=== PATIENT | female | born 1990 | race Caucasian/White ===

== ENCOUNTER 2024-09-25 20:30 | Emergency (ER) | payer MEDICAID, SELFPAY ==
--- NOTE | ~2024-09-25 | XR_ITS ---
EXAM: XR hand RT min 3V DATE: 09/25/2024 20:41 HISTORY: right ring finger injury, BRUISNG AND SWELLING . COMPARISON: None available. FINDINGS: Normal mineralization. Tiny triangle shaped ossification/calcification over the anterolate ral aspect of the right fourth PIP joint. No lytic or blastic lesion. Joint spaces are maintained. No erosion or periosteal change. Soft tissues within normal limits. IMPRESSION: Possible tiny avulsion fracture fragment at the anterolateral aspect of the right fourth PIP joint, correlate for pain/tenderness. Reviewed, dictated and finalized at location K. ORATE RELATIONS MANAGER IMPRESSION: Possible tiny avulsion fracture fragment at the anterolateral aspec t of the right fourth PIP joint, correlate for pain/tenderness.
--- NOTE | 2024-09-25 20:49 | ED_ITS ---
HPI - Trauma General Chief Complaint: Extremity Injury, Upper Stated Complaint: right ring finger injury Time Seen by Provider: 09/25/24 20:49 Source: patient Mode of arrival: ambulatory Limitations: no limitations History of Present Illness HPI narrative: This is a 34-year-old female who presents to the ED for chief complaint of right ring finger injury that occurred just prior to arrival. Patient states that she was handling a fasting well when her daughter tried to push the full into her. States that this event her finger sideways and she feels like it had subluxated. She states that she has dealt with this kind of issue for the other hand. States that she attempted to reduce the finger at home but is now having a lot of pain throughout the ring finger and difficulty with making a fist. Denies any further sites of pain or injury. Denies numbness or weakness. Review of Systems Review of Systems: All systems as dictated in HPI Exam Narrative: GENERAL: Well-appearing, well-nourished, and in no acute distress. HEAD: Normocephalic, atraumatic. EYES: PERRLA and EOMI. ENT: Nares clear, no rhinorrhea or epistaxis. Mucous membranes moist. Oropharynx without tonsillar hypertrophy exudate or other lesions. NECK: Supple. No adenopathy or masses. CHEST: No respiratory distress. Clear to auscultation. No wheezes rales or rhonchi HEART: Regular rate and rhythm. No murmur heard. Normal peripheral pulses. ABDOMEN: Soft, nontender, nondistended, normal active bowel sounds. MSK: LUE: Benign RUE: Mild tenderness throughout the right ring finger. Difficulty with making a fist. Able to fully extend the finger. Neurovascularly intact distally. SKIN: Warm, dry, no rash. NEURO: Alert and oriented x4. No focal deficits. PSYCH: Normal mood and affect. MDM - Trauma MDM Narrative Medical decision making narrative: This is a 34-year-old female who presents to the ED for chief complaint of right ring finger injury that occurred just prior to arrival. Vitals are normal. Exam is remarkable for the above. Right hand x-rays are revealing of a tiny avulsion fracture to the proximal right ring finger. This is clinically consistent with her presentation. Presentation most likely representing a ligamentous sprain causing small avulsion fracture. Patient was placed in a finger splint here. Patient will be discharged in stable condition. Supportive measures discussed and return precautions given. Patient is understanding and agreeable with plan for discharge with PCP follow-up. Discharge Plan Discharge Clinical Impression: Avulsion fracture of proximal phalanx of finger Patient Disposition: Home, Self-Care Condition: Stable Instructions: Antibiotic Form Additional Instructions: Your exam and imaging today did show tiny avulsion fracture to the ring finger. This is probably due to a ligament sprain. Please use finger splint for the next 2-3 weeks and follow-up with your PCP. Use Tylenol 500 mg and ibuprofen 600 mg every 6 hours as needed for pain control. If you have any new or worsening symptoms please return to the ER for further evaluation. Patient Language: Setswana Follow-up/Referrals: PHYSICIAN,LEGAL RESEARCHER [Non-Staff] - Time of Disposition: 20:54
--- OUTSIDE RECORDS SUMMARY | 2024-09-25 21:12 | XMS_ITS | Referral Summary ---
Author Organization [facility] Address [address] [place] [address] Care Team Providers Care [employer] Consultant Name Role Phone Lanette Jimenez Primary Care Provider + Source Comments [facility],non-owned Affiliates and Associated Physician Practices is amultiple site organization consisting of ambulatory clinics and hospital sitesin [place], [place], [place] and [place]. This disclosure is being madepursuant to the Care Everywhere program and may not contain all information available regarding this patient. Last updated 18.[facility] Encounters Date Type Department Care Team Description 09/04/[address] [phone] Lanette Jimenez APRN-CNP MEDICATION REFILL 08/16/[address] [phone] Lanette Jimenez APRN-CNP Refill Request 07/28/2024 3:00 PM [employer] WORK[employer] Office Visit [address] [phone] Lanette Jimenez APRN-CNP Bronchitis (Primary Dx) 07/22/2024 1:40 PM [employer] Office Visit [address] 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 Alwaysverify current medications with the patient. Medication Sig Dispensed Refills Start Date End Date Status lisdexamfetamine (VYVANSE) 30 MG capsuleIndications :Attention Deficit Hyperactivity Disorder Take 1 (one) capsule by mouth every morning Reasons: Attention Deficit Hyperactivity Disorder 30 capsule 09/21/2021 Active Additional Information Patient not taking.Reported on 04/16/2023 PARoxetine (Paxil) 10 MG tabletIndications: Anxiety Take 1 (one) tablet by mouth once daily 90 tablet 1 11/13/2023 Active Additional Information Patient not taking.Reported on 04/24/2024 albuterol HFA (Proventil; Ventolin; Proair) 108 (90 Base) MCG/ACT inhalerIndications :COVID-19,SOB (shortness of breath) Inhale 2 (two) puffs by mouth every 4 hours as needed for Wheezing 6.7 g 3 01/28/2024 Active PHENobarbital (Luminal) 30 MG tablet Take 1 (one) tablet by mouth daily before breakfast 01/10/2024 Active ALPRAZolam (Xanax) 0.25 MG tabletIndications: Anxiety Take 1 (one) tablet by mouth 2 times daily as needed for Anxiety 10 tablet 05/21/2024 Active topiramate (Topamax) 25 MG tabletIndications: Class 2 obesity due to excess calories without serious comorbidity with body mass index (BMI) of 37.0 to 37.9 in adult Take 1 (one) tablet by mouth once daily 90 tablet 1 05/22/2024 Active amoxicillin-clavul anate (Augmentin) 875-125 MG tabletIndications: Acute non-recurrent pansinusitis Take 1 (one) tablet by mouth 2 times daily with morning and evening meal 20 tablet 07/22/2024 Active fluconazole (Diflucan) 150 MG tabletIndications: Yeast infection Take one now and repeat in 1 week 2 tablet 07/22/2024 Active hydroCHLOROthiazid e (Microzide) 12.5 MG capsuleIndications :Fluid retention TAKE ONE Capsule BY MOUTH DAILY 90 capsule 1 08/17/2024 Active montelukast (Singulair) 10 MG tabletIndications: Seasonal allergies Take 1 (one) tablet by mouth once daily 90 tablet 1 08/17/2024 Active phentermine (Ionamine) 30 MG capsuleIndications :Class 2 obesity due to excess calories without serious comorbidity with body mass index (BMI) of 37.0 to 37.9 in adult Take 1 (one) capsule by mouth daily before breakfast 30 capsule 09/05/2024 Active phentermine (Ionamine) 30 MG capsuleIndications :Class 2 obesity due to excess calories without serious comorbidity with body mass index (BMI) of 37.0 to 37.9 in adult Take 1 (one) capsule by mouth daily before breakfast 30 capsule 07/22/2024 09/04/19 25 Discontinu ed(Reorder ) Active Problems Problem Noted Date Diagnosed Date COVID-19 09/02/2020 Immunizations Name Administration Dates Next Due DTP 09/06/2001, 1,10/08/2000,1999 HEP B VACCINE ADOL/ADULT 2 DOSE 06/17/2001,10/08,08/06/2000 HIB-PRP-OMP 3 DOSE 06/17/2001,10/08/2000, 000 INFLUENZA VACCINE, QUADR. (F LUZONE; FLULAVAL; FLUARIX; AFLURIA QUADRIVALENT; 6MO+), 0.5 ML (IIV4) 09/13/2015 MENINGOCOCAL MENINGITIS 05/08/2014 MMR 09/06/2001 PNEUMOCOCCAL PCV7 CONJ, PEDS 06/17/2001, 12/14/2000,10/08/2000,1999 POLIO IPV 12/14/2000,10/08/2000,08/06/2000 TDAP (7yrs+) 09/14/2015 VARICELLA 05/08/2014,06/17/2001 Social History Tobacco Use Types Packs/Day Years Used Date Smoking Tobacco: Former Cigarettes 2 - 2010 Smokeless Tobacco: Never Tobacco Cessation:Counseling Given: No Alcohol Use Standard Drinks/Week Comments Yes 0 (1 standard drink = 0.6 oz pur e alcohol) PHQ-2 Answer Date Recorded Patient Health Questionnaire-2 Score 0 07/28/2024 Sex and Gender Information Value Date Recorded Sex Assigned at Female 05/21/2024 12:15 PM CDT Gender Identity Not on file Sexual Orientation Straight 05/21/2024 12 :15 PM CDT Last Filed Vital Signs Vital Sign Reading Time Taken Comments Blood Pressure 127/88 07/28/2024 3:09 PM [employer] Pulse 114 07/28/2024 3:09 PM [employer] Temperature 36.7 ??C (98.1 ??F) 04/24/2024 10:59 AM C DT Respiratory Rate 18 06/12/2022 3:21 PM CDT Oxygen Saturation 97% 07/28/2024 3:09 PM [employer] Inhaled Oxygen Concentration - - Weight 83.5 kg (184 lb) 07/28/2024 3:09 PM [employer] Height 160 cm (5' 3 ) 07/28/2024 3:09 PM [employer] WORKER Body Mass Index 32.59 07/28/2024 3:09 PM [employer] Functional Status Functional Status Response Date of Assess ment Is person deaf or have serious hearing difficult y? No 09/13/2015 Is person blind or have serious difficulty seein g? No 09/13/2015 Does person have serious dif ficulty walking/climbing stairs? No 09/13/2015 Does person have difficulty dressing/bathing? No 09/13/2015 Does person have difficulty doing errands alone? No 09/13/2015 Cognitive Status Response Date of Assessm ent Does person have difficulty concentrating/remembering/making decisions? No 09/13/2015 Plan of Treatment Not on file Administered Medications Advance Directives * Full Code (Latest Code Status on File) Date Activated Date Inactivated Comments 09/13/2015 12:18 AM 09/15/2015 3:31 PM * Full Code Date Activated Date Inactivated Comments 09/09/2015 8:16 PM 09/09/2015 10:31 PM * Full Code Date Activated Date Inactivated Comments 08/27/2015 9:40 AM 08/27/2015 12:05 PM * Full Code Date Activated Date Inactivated Comments 08/15/2015 5:24 PM 08/15/2015 8:11 PM * Full Code Date Activated Date Inactivated Comments 08/07/2015 5:27 AM 08/07/2015 9:21 AM Care Teams [employer] Consultant Relationship Specialty Start Date End Date Lanette Jimenez, ALUMINUM FABRICATION SUPERVISOR-RECORD PRESS TENDER [address] [place] [address] PCP - General Nurse Practitioner 12/26/21
--- OUTSIDE RECORDS SUMMARY | 2024-09-25 21:12 | XMS_ITS | Patient Health Summary ---
Author Organization [facility] Address [address] [place] [address] Care Team Providers Care Litigation Partner Name Role Phone Lanette Jimenez Darren CASTILLO-INSTITUTE SCIENTIST Primary Care Provider + Note from [facility],non-owned Affiliates and Associated Physician Practices is amultiple site organization consisting of ambulatory clinics and hospital sitesin [place], [place], [place] and [place]. This disclosure is being madepursuant to the Care Everywhere program and may not contain all information available regarding this patient. Last updated 18.[facility] Allergies * Morphine(Shortness of Breath,Rash) -High Criticality Medications * Be aware that medications may not be up to date on this document. Alwaysverify current medications with the patient. * lisdexamfetamine (VYVANSE) 30 MG capsule(Started 09/21/2021) Take 1 (one) capsule by mouth every morning Reasons: Attention Deficit Hyperactivity Disorder * PARoxetine (Paxil) 10 MG tablet(Started 11/13/2023) Take 1 (one) tablet by mouth once daily 1 refill by 11/12/2024 * albuterol HFA (Proventil; Ventolin; Proair) 108 (90 Base) MCG/ACT inhaler (Started 01/28/2024) Inhale 2 (two) puffs by mouth every 4 hours as needed for Wheezing 3 refills by 01/27/2025 * PHENobarbital (Luminal) 30 MG tablet(Started 01/10/2024) Take 1 (one) tablet by mouth daily before breakfast * ALPRAZolam (Xanax) 0.25 MG tablet(Started 05/21/2024) Take 1 (one) tablet by mouth 2 times daily as needed for Anxiety * topiramate (Topamax) 25 MG tablet(Started 05/22/2024) Take 1 (one) tablet by mouth once daily 1 refill by 05/22/2025 * amoxicillin-clavulanate (Augmentin) 875-125 MG tablet(Started 07/22/2024) Take 1 (one) tablet by mouth 2 times daily with morning and evening meal * fluconazole (Diflucan) 150 MG tablet(Started 07/22/2024) Take one now and repeat in 1 week * hydroCHLOROthiazide (Microzide) 12.5 MG capsule(Started 08/17/2024) TAKE ONE Capsule BY MOUTH DAILY 1 refill by 08/17/2025 * montelukast (Singulair) 10 MG tablet(Started 08/17/2024) Take 1 (one) tablet by mouth once daily 1 refill by 08/17/2025 * phentermine (Ionamine) 30 MG capsule(Started 09/05/2024) Take 1 (one) capsule by mouth daily before breakfast Ended Medications* phentermine (Ionamine) 30 MG capsule(Started 07/22/2024) (Discontinued) Take 1 (one) capsule by mouth daily before breakfast Active Problems Problem Noted Date Diagnosed Date COVID-19 09/02/2020 Immunizations * DTP(Given 09/06/2001, 12/14/2000, 10/08/2000, 08/06/2000) * HEP B VACCINE ADOL/ADULT 2 DOSE(Given 06/17/2001, 10/08/2000, 08/06/2000) * HIB-PRP-OMP 3 DOSE(Given 06/17/2001, 10/08/2000, 08/06/2000) * INFLUENZA VACCINE, QUADR. (FLUZONE; FLULAVAL; FLUARIX; AFLURIA QUADRIVALENT; 6MO+), 0.5 ML (IIV4)(Given 09/13/2015) * MENINGOCOCAL MENINGITIS(Given 05/08/2014) * MMR(Given 09/06/2001) * PNEUMOCOCCAL PCV7 CONJ, PEDS(Given 06/17/2001, 12/14/2000, 10/08/2000, 08/06/2000) * POLIO IPV(Given 12/14/2000, 10/08/2000, 08/06/2000) * TDAP (7yrs+)(Given 09/14/2015) * VARICELLA(Given 05/08/2014, 06/17/2001) Social History Tobacco Use Types Packs/Day Years [...] Comments Blood Pressure 127/88 07/28/2024 3:09 PM TIRE BUSTER Pulse 114 07/28/2024 3:09 PM TIRE BUSTER Temperature 36.7 ??C (98.1 ??F) 04/24/2024 10:59 AM C DT Respiratory Rate 18 06/12/2022 3:21 PM CDT Oxygen Saturation 97% 07/28/2024 3:09 PM TIRE BUSTER Inhaled Oxygen Concentration - - Weight 83.5 kg (184 lb) 07/28/2024 3:09 PM TIRE BUSTER Height 160 cm (5' 3 ) 07/28/2024 3:09 PM TIRE BUSTER Body Mass Index 32.59 07/28/2024 3:09 PM TIRE BUSTER Procedures * STREP A SCREEN - POINT OF CARE (AMB) SMGS(Performed 04/24/2024) Performed for Sore throat * SCAN ONLY HIS OPIOID MED AGREEMENT(Performed 09/13/2023) * STREP A SCREEN - POINT OF CARE (AMB) SMGS(Performed 07/17/2023) Performed for Sore throat * SARS-COV-2 (COVID-19) AG (AMB) POCT(Performed 07/17/2023) Performed for Sore throat, Fever, unspecified fever cause * TSH(Performed 05/24/2023) Performed for Hyperthyroidism * STREP A SCREEN - POINT OF CARE (AMB) SMGS(Performed 04/16/2023) Performed for Sore throat * TSH(Performed 03/12/2023) Performed for Anxiety * COMPREHENSIVE METABOLIC PANEL(Performed 11/14/2022) Performed for Anxiety * CBC W AUTO DIFFERENTIAL(Performed 11/14/2022) Performed for Anxiety * TSH(Performed 11/14/2022) Performed for Anxiety * SCAN ONLY HIS OPIOID MED AGREEMENT(Performed 11/14/2022) * STREP A SCREEN - POINT OF CARE (AMB) SMGS(Performed 09/12/2022) Performed for Sore throat * STREP A SCREEN - POINT OF CARE (AMB) SMGS(Performed 07/11/2022) Performed for Sore throat * CBC W AUTO DIFFERENTIAL(Performed 03/16/2022) Performed for Wellness examination, Fluid retention * TSH(Performed 03/16/2022) Performed for Fluid retention * THYROID PANEL (T3U T4 FTI)(Performed 03/16/2022) Performed for Fluid retention * TSH(Performed 12/08/2021) Performed for Wellness examination * COMPREHENSIVE METABOLIC PANEL(Performed 12/08/2021) Performed for Wellness examination * LIPID PROFILE(Performed 12/08/2021) Performed for Wellness examination * THYROID PANEL (T3U T4 FTI)(Performed 12/08/2021) Performed for Wellness examination, Fluid retention * SARS-COV-2 (COVID-19) IN HOUSE(Performed 09/21/2021) Performed for Otalgia of both ears, Exposure to confirmed case of COVID-19 * SARS-COV-2 (COVID-19) PANEL (SOIL)(Performed 09/21/2021) Performed for Otalgia of both ears, Exposure to confirmed case of COVID-19 * US ABDOMEN COMPLETE(Performed 06/29/2021) Performed for Right upper quadrant pain * CULTURE URINE(Performed 06/23/2021) Performed for Right upper quadrant pain * URINALYSIS AUTO - POINT OF CARE (AMB) SMGS(Performed 06/23/2021) Performed for Right upper quadrant pain * SARS-COV-2 (COVID-19) ANTIBODY IGG(Performed 06/03/2021) Performed for COVID * TSH(Performed 09/27/2020) Performed for Non morbid obesity, BMI 35.0-35.9,adult, PCOS (polycystic ovarian syndrome), Weight gain * COMPREHENSIVE METABOLIC PANEL(Performed 09/27/2020) Performed for PCOS (polycystic ovarian syndrome), Weight gain, Fatigue, unspecified type * CBC W AUTO DIFFERENTIAL(Performed 09/27/2020) Performed for Non morbid obesity, PCOS (polycystic ovarian syndrome), Weight gain, Fatigue, unspecified type * COVID-19 VIRUS (CORONAVIRUS)(Performed 08/22/2020) * URINALYSIS AUTO - POINT OF CARE (AMB) SMGS(Performed 02/16/2020) Performed for Dysuria * FSH(Performed 03/21/2019) Performed for Fatigue, unspecified type, Weight gain, Hot flashes * CBC W AUTO DIFFERENTIAL(Performed 03/21/2019) Performed for Fatigue, unspecified type, Weight gain, Hot flashes * COMPREHENSIVE METABOLIC PANEL(Performed 03/21/2019) Performed for Fatigue, unspecified type, Weight gain, Hot flashes * TSH(Performed 03/21/2019) Performed for Fatigue, unspecified type, Weight gain, Hot flashes * LH(Performed 03/21/2019) Performed for Fatigue, unspecified type, Weight gain, Hot flashes * US GALLBLADDER(Performed 12/17/2017) * CT ABDOMEN W CONTRAST(Performed 12/17/2017) * CT ABDOMEN WWO PELVIS W CONT(Performed 06/04/2017) Performed for Hematuria * URINE MICROSCOPIC ONLY(Performed 05/23/2017) Performed for Blood in urine * URINALYSIS AUTO - POINT OF CARE (AMB) SMGS(Performed 05/23/2017) Performed for Blood in urine * SKIN TEST PPD - POINT OF CARE(Performed 02/12/2017) Performed for Health examination of defined subpopulation * SKIN TEST PPD - POINT OF CARE(Performed 02/04/2017) Performed for Health examination of defined subpopulation * CBC W AUTO DIFFERENTIAL(Performed 09/14/2015) * RH IMMUNE GLOBULIN WORKUP PANEL(Performed 09/13/2015) * NEURAXIAL BLOCK(Performed 09/13/2015) * TYPE + SCREEN PANEL(Performed 09/13/2015) Performed for Supervision of normal in third trimester ([facility]) * RPR(Performed 09/13/2015) Performed for Supervision of normal in third trimester ([facility]) * CBC W AUTO DIFFERENTIAL(Performed 09/13/2015) Performed for Supervision of normal in third trimester ([facility]) * URINE MICROSCOPIC ONLY(Performed 09/13/2015) Performed for Supervision of normal in third trimester ([facility]) * URINALYSIS REFLEX TO MICROSCOPIC NO CULTURE(Performed 09/13/2015) Performed for Supervision of normal in third trimester ([facility]) * URINE MICROSCOPIC ONLY REFLEX TO CULTURE(Performed 09/09/2015) Performed for Nausea and vomiting during ([facility]) * URINALYSIS REFLEX MICROSCOPIC REFLEX CULTURE(Performed 09/09/2015) Performed for Nausea and vomiting during ([facility]) * CULTURE URINE(Performed 09/09/2015) Performed for Nausea and vomiting during ([facility]) * AMNISURE - POCT (IP) BEAKER(Performed 08/27/2015) * US OB BIOPHYSICAL PROFILE(Performed 08/15/2015) Performed for Antepartum premature rupture of membrane ([facility]) * AMNISURE - POCT (IP) BEAKER(Performed 08/15/2015) * NITRAZINE PH - POINT OF CARE (IP) - ILL(Performed 08/15/2015) Performed for Antepartum premature rupture of membrane ([facility]) * URINE MICROSCOPIC ONLY REFLEX TO CULTURE(Performed 08/15/2015) Performed for Antepartum premature rupture of membrane ([facility]) * URINALYSIS REFLEX MICROSCOPIC REFLEX CULTURE(Performed 08/15/2015) Performed for Antepartum premature rupture of membrane ([facility]) * CULTURE URINE(Performed 08/15/2015) Performed for Antepartum premature rupture of membrane ([facility]) * URINALYSIS REFLEX MICROSCOPIC REFLEX CULTURE(Performed 08/07/2015) Performed for Supervision of normal in third trimester ([facility]) * URINE MICROSCOPIC ONLY REFLEX TO CULTURE(Performed 07/22/2015) Performed for contractions, third trimester * URINALYSIS REFLEX MICROSCOPIC REFLEX CULTURE(Performed 07/22/2015) Performed for contractions, third trimester * CULTURE URINE(Performed 07/22/2015) Performed for contractions, third trimester * AMNISURE - POCT (IP) BEAKER(Performed 06/29/2015) Performed for Threatened premature labor in third trimester ([facility]) * URINE MICROSCOPIC ONLY REFLEX TO CULTURE(Performed 06/29/2015) Performed for Threatened premature labor in third trimester ([facility]) * URINALYSIS REFLEX MICROSCOPIC REFLEX CULTURE(Performed 06/29/2015) Performed for Threatened premature labor in third trimester ([facility]) * CULTURE URINE(Performed 06/29/2015) Performed for Threatened premature labor in third trimester ([facility]) * URINE MICROSCOPIC ONLY REFLEX TO CULTURE(Performed 03/31/2015) * URINALYSIS REFLEX MICROSCOPIC REFLEX CULTURE(Performed 03/31/2015) * CULTURE URINE(Performed 03/31/2015) * AMYLASE BLOOD(Performed 02/11/2015) * COMPREHENSIVE METABOLIC PANEL(Performed 02/11/2015) * CBC W AUTO DIFFERENTIAL(Performed 02/11/2015) * URINE MICROSCOPIC ONLY(Performed 02/10/2015) * URINALYSIS REFLEX TO MICROSCOPIC NO CULTURE(Performed 02/10/2015) * HCG BLOOD QUALITATIVE(Performed 11/30/2014) Performed for Absence of menstruation * GROSS + MICRO EXAM (ILL)(Performed 12/18/2013) Performed for Lump Or Mass In Breast * US BREAST LEFT COMPLETE(Performed 11/13/2013) Performed for Lump Or Mass In Breast Results * STREP A SCREEN - POINT OF CARE (AMB) [facility] (04/24/2024 11:36 AM CDT) Only the most recent of5 resultswithin the time period is included. Strep A Rapid POCT Negative Negative [facility] Strep A Rapid Screen Internal Control POCT Present [facility] Throat ENTIRE THROAT (SURFACE REGION OF NECK) / Unknown 04/24/2024 11:36 AM CDT Lanette Jimenez GREENHOUSE SPECIALIST-INSTITUTE SCIENTIST LAB - POINT OF C ARE ORDERABLES [facility] [address] [place] [address], [facility] [phone] * SCAN ONLY HIS OPIOID MED AGREEMENT (09/13/2023) Only the most recent of2 resultswithin the time period is included. 09/13/2023 Narrative 09/13/2023 Ordered by an unspecified provider. Scanned Document SCANNING ONLY * (ABNORMAL) SARS-COV-2 (COVID-19) AG (AMB) POCT (07/17/2023 10:20 AM TIRE BUSTER) Pathologist [facility] SARS-CoV-2 Ag Positive(A) Negative [facility] Lot # [id number] [facility] Expiration Date 04/30/24 [facility] Instrument Serial Number NA [facility] COVID Internal Control Acceptable Acceptable [facility] Microbiology SPECIMEN FROM NASAL FOSSAE / Unknown 07/17/2023 10:20 AM TIRE BUSTER Lanette Jimenez GREENHOUSE SPECIALIST-INSTITUTE SCIENTIST LAB - POINT OF C ARE ORDERABLES Performing Organization Address [facility]/ZIP Co de Phone Number [facility] [address] [place] [id number] [phone] * TSH (05/24/2023 4:03 PM CDT) Only the most recent of7 resultswithin the time period is included. Pathologist [facility] TSH 1.3443 0.35 - 4.94 uIU/mL 05/24/2023 6:16 PM CDT [facility] Blood BLOOD SPECIMEN / Unknown Venipuncture / Unknown 05/24/2023 4:03 PM CDT 05/24/2023 4:03 PM CDT Lanette Jimenez GREENHOUSE SPECIALIST-INSTITUTE SCIENTIST LAB - CHEMISTRY ORDERABLES Performing Organization Address City/[facility]/ZIP Co de Phone Number [facility] [address] * (ABNORMAL) CBC WITH DIFFERENTIAL (11/14/2022 2:57 PM CDT) Only the most recent of7 resultswithin the time period is included. WBC 7.3 4.0 - 10.0 x10E9/L 11/14/2022 5:04 PM CDT [facility] RBC 5.37(H) 3.93 - 5.22 x10E12/L 11/14/2022 5:04 PM CDT [facility] Hemoglobin 14.0 11.2 - 15.7 gm/dL 11/14/2022 5:04 PM CDT [facility] Hematocrit 44.1 34.1 - 44.9 % 11/14/2022 5:04 PM CDT [facility] MCV 82.1 78.0 - 100.0 fl 11/14/2022 5:04 PM CDT [facility] MCH 26.1 25.6 - 34.0 pg 11/14/2022 5:04 PM CDT [facility] MCHC 31.7(L) 32.3 - 36.5 gm/dL 11/14/2022 5:04 PM CDT [facility] RDW 13.5 11.6 - 14.4 % 11/14/2022 5:04 PM CDT [facility] MPV 10.8 9.4 - 12.4 fl 11/14/2022 5:04 PM CDT [facility] Platelet Count 266 163 - 369 x10E9/L 11/14/2022 5:04 PM CDT [facility] Neutrophils % 60.4 40.0 - 75.0 % 11/14/2022 5:04 PM CDT [facility] Lymphocytes % 30.3 19.3 - 53.1 % 11/14/2022 5:04 PM CDT [facility] Monocytes % 6.3 4.7 - 12.5 % 11/14/2022 5:04 PM CDT [facility] Eosinophils % 1.8 0.7 - 7.0 % 11/14/2022 5:04 PM CDT [facility] Basophils % 0.7 0.1 - 1.2 % 11/14/2022 5:04 PM CDT [facility] Immature Granulocytes 0.5 0 - 0.5 % 11/14/2022 5:04 PM CDT [facility] Neutrophil Absolute 4.40 1.56 - 6.13 x10E9/L 11/14/2022 5:04 PM CDT [facility] Lymphocytes Absolute 2.21 1.18 - 3.74 x10E9/L 11/14/2022 5:04 PM CDT [facility] Monocytes Absolute 0.46 0.24 - 0.86 x10E9/L 11/14/2022 5:04 PM CDT [facility] Eosinophils Absolute 0.13 0.04 - 0.54 x10E9/L 11/14/2022 5:04 PM CDT [facility] Basophils Absolute 0.05 0.01 - 0.08 x10E9/L 11/14/2022 5:04 PM CDT [facility] Immature Granulocytes Absolute 0.04(H) 0 - 0.03 x10E9/L 11/14/2022 5:04 PM CDT [facility] nRBC Auto 0 <=0 /100 WBC 11/14/2022 5:04 PM CDT [facility] nRBC Absolute 0.00 <=0 x10E9/L 11/14/2022 5:04 PM CDT [facility] Blood BLOOD SPECIMEN / Unknown Venipuncture / Unknown 11/14/2022 2:57 PM CDT 11/14/2022 2:57 PM CDT Lanette Jimenez GREENHOUSE SPECIALIST-INSTITUTE SCIENTIST LAB - HEMATOLOGY ORDERABLES [facility] [address] [place] [address], [facility] * (ABNORMAL) COMPREHENSIVE METABOLIC PANEL (11/14/2022 2:57 PM CDT) Only the most recent of5 resultswithin the time period is included. Glucose 101 70 - 125 mg/dL 11/14/2022 5:12 PM CDT [facility] Sodium 140 136 - 145 mmol/L 11/14/2022 5:12 PM CDT [facility] Potassium 3.8 3.4 - 5.1 mmol/L 11/14/2022 5:12 PM CDT [facility] Chloride 108(H) 98 - 107 mmol/L 11/14/2022 5:12 PM CDT [facility] CO2 22 22 - 29 mmol/L 11/14/2022 5:12 PM CDT [facility] Calcium 9.18 8.4 - 10.2 mg/dL 11/14/2022 5:12 PM CDT [facility] Anion Gap 14 10 - 20 mmol/L 11/14/2022 5:12 PM CDT [facility] BUN 8.3(L) 9.8 - 20.1 mg/dL 11/14/2022 5:12 PM CDT [facility] Creatinine 0.73 0.57 - 1.11 mg/dL 11/14/2022 5:12 PM CDT [facility] Alkaline Phosphatase 84 40 - 150 U/L 11/14/2022 5:12 PM CDT [facility] ALT 31 5 - 55 U/L 11/14/2022 5:12 PM CDT [facility] AST 22 5 - 34 U/L 11/14/2022 5:12 PM CDT [facility] Protein Total 7.4 6.4 - 8.3 gm/dL 11/14/2022 5:12 PM CDT [facility] Albumin 4.2 3.5 - 5.0 gm/dL 11/14/2022 5:12 PM CDT [facility] Globulin Total 3.2 2.6 - 4.0 gm/dL 11/14/2022 5:12 PM CDT [facility] Albumin/Globulin Ratio 1.3 0.9 - 1.6 11/14/2022 5:12 PM CDT [facility] Bilirubin Total 0.4 0.2 - 1.2 mg/dL 11/14/2022 5:12 PM CDT [facility] eGFR >90 >90 mL/min/1.7 3m2 11/14/2022 5:12 PM CDT [facility] Comment:The GFR result was c alculated using the updated CKD-EPI Creatinine Equation (2020). Blood BLOOD SPECIMEN / Unknown Venipuncture / Unknown 11/14/2022 2:57 PM CDT 11/14/2022 2:57 PM CDT Lanette Jimenez GREENHOUSE SPECIALIST-INSTITUTE SCIENTIST LAB - CHEMISTRY ORDERABLES Performing Organization Address City/State/[facility] Co de Phone Number [facility] [address] * THYROID PANEL (T3U T4 FTI) (03/16/2022 9:39 AM CDT) Only the most recent of2 resultswithin the time period is included. T4 Total 6.20 4.50 - 11.70 ug/dL 03/17/2022 6:27 PM CDT [employer] ([facility]) Comment: REFERENCE INTERVAL: Thyroxine Access complete set of age- and/or gender-specific reference intervals for this test in the [employer] [facility] Test Directory ([employer]). T3 Uptake 31 28 - 41 % 03/17/2022 6:27 PM CDT [employer] ([facility]) Comment: INTERPRETIVE INFORMATION: T3 Uptake Thyroxine, Free (Free T4) ([id number]) is the preferred test alternative for the T3 uptake and Free Thyroxine Index tests. Free Thyroxine Index 1.9 1.7 - 4.2 units 03/17/2022 6:27 PM CDT [employer] ([facility]) Comment: Performed By: [employer] [address] [place] [address] Reordering Clerk: Charlie Mcarthur MD, PhD Blood BLOOD SPECIMEN / Unknown Venipuncture / Unknown 03/16/2022 9:39 AM CDT 03/16/2022 9:39 AM CDT Lanette Jimenez GREENHOUSE SPECIALIST-INSTITUTE SCIENTIST LAB - CHEMISTRY ORDERABLES [employer] ([facility]) [address] * (ABNORMAL) LIPID PROFILE (12/08/2021 3:32 PM CDT) Cholesterol 204(H) <200 mg/dL 12/08/2021 5:29 PM CDT [facility] Triglycerides 114 <150 mg/dL 12/08/2021 5:29 PM CDT [facility] HDL Cholesterol 43 >40 mg/dL 2 5:29 PM CDT [facility] Chol HDL Ratio 4.7 1.0 - 6.0 12/08/2021 5:29 PM CDT [facility] LDL Calculated 138(H) 65 - 130 mg/dL 12/08/2021 5:29 PM CDT [facility] VLDL Calculated 23 <=30 mg/dL 2 5:29 PM CDT [facility] Blood BLOOD SPECIMEN / Unknown Venipuncture / Unknown 12/08/2021 3:32 PM CDT 12/08/2021 3:32 PM CDT Narrative [facility] - 12/08/2021 5:29 PM CDT Lipid Profile Comment: CHOLESTEROL LEVEL..................CLINICAL INTERPRETATION LESS THAN 200 MG/DL..............................DESIRABLE 200-239 MG/DL..............................BORDERLINE HIGH GREATER THAN 240 MG/DL................................HIGH LDL-CHOLESTEROL LEVEL..............CLINICAL INTERPRETATION LESS THAN 100 MG/DL................................OPTIMAL 100-129 MG/DL.................................NEAR OPTIMAL GREATER THAN 160 MG/DL...........................HIGH RISK HDL RISK LEVEL GREATER THEN 60 MG/DL............................DECREASED 40-60 MG/DL........................................AVERAGE LESS THAN 40 MG/DL...............................INCREASED TRIGLYCERIDE LEVEL..................CLINICAL INTERPRETATION LESS THAN 150 MG/DL...............................DESIRABLE 150-199 MG/DL...............................BORDERLINE HIGH 200-499 MG/DL..........................................HIGH GREATER THAN 500..................................VERY HIGH THE NATIONAL CHOLESTEROL EDUCATION PROGRAM HAS SET THE ABOVE GUIDELINES (REFERANCE VALUES) FOR CHOLESTEROL AND HDL. RISK ASSOCIATED WITH CHOLESTEROL/HDL RATIOS RISK....................MALE RATIO.............FEMALE RATIO 1/2 AVERAGE.................<3.4.......................<3.3 LOW RISK.................... 4.0 ...................... 3.8 AVERAGE..................... 5.0 ...................... 4.5 2X AVERAGE.................. 9.5 ...................... 7.0 3X AVERAGE...................>23........................>11 Lanette Darren Jimenez GREENHOUSE SPECIALIST-INSTITUTE SCIENTIST LAB - CHEMISTRY ORDERABLES Performing Organization Address City/State/[facility] Co de Phone Number [place] [phone] * SARS-COV-2 (COVID-19) INTERNAL (09/21/2021 1:12 PM TIRE BUSTER) COVID-19 PCR Not detected Not detected 09/22/2021 6:49 AM TIRE BUSTER [facility] Microbiology SPECIMEN FROM NASOPHARYNGEAL STRUCTURE / Unknown Collection / Unknown 09/21/2021 1:12 PM TIRE BUSTER 09/21/2021 1:12 PM TIRE BUSTER Narrative [facility] - 09/22/2021 6:49 AM TIRE BUSTER This nucleic acid amplification assay performance was validated by [facility]. This test has been authorized by the Food and Drug administration (FDA)under an Emergency??Use Authorization (EUA). This test has been validated in accordance with the FDA's guidance document Policy for Diagnostic Testing in Laboratories Certified to perform High Complexity Testing under CLIA prior to Emergency Use Authorization for Coronavirus Disease-2019 during the Public Health Emergency issued on October 25, 2019. FDA independent review of this validation is pending. This test is only authorized for the duration of time the declaration that circumstances exist justifying the authorization of emergency use of in vitro diagnostic tests for detection of SARS-CoV-2 virus and/or diagnosis of COVID-19 infection under section 564(b)(1) of the Act, 21 U.S.C 360bbb-3 (b)(1), unless the authorization is terminated or revoked sooner. Fact Sheets for this EUA assay are available upon request. Tammy Scott GREENHOUSE SPECIALIST-INSTITUTE SCIENTIST LAB - MICROBIO LOGY ORDERABLES [facility] [address] [place] [address], [facility] [phone] * US ABDOMEN COMPLETE (06/29/2021 9:24 AM CDT) Anatomical Region Laterality Modality Abdomen Ultrasound 06/29/2021 10:2 3 AM CDT Impressions 06/29/2021 11:02 AM CDT 1.Gallbladder maintains normal configuration without cholelithiasis or evidence of acute cholecystitis. No bile duct dilatation. 2.Visualized liver parenchyma has normal echotexture. Spleen is normal in size and echotexture. Doppler evaluation of the central portal vein demonstrates patency with normal directional flow. 3.Pancreas is partially obscured by overlying bowel gas though negative where seen. No ascites or peripancreatic fluid collection. Normal caliber abdominal aorta. 4.The kidneys demonstrate normal cortical echotexture bilaterally. No hydronephrosis. Right kidney measures 10.7 x 5.5 x 4.0 cm. Left kidney measures 12.5 x 5.2 x 4.5 cm. 5.If further evaluation is warranted for patient's abdominal pain, then HIDA scan and CT abdomen and pelvis could be obtained. Edited by Antonina Zuluaga on 06/29/2021 10:38 AM *Reading Radiologist: Nicolasa Crocker on 06/29/2021 at 11:02 AM Narrative 06/29/2021 11:02 AM CDT EXAMINATION: US ABDOMEN COMPLETE EXAM DATE/TIME: 06/29/2021 9:25 AM CLINICAL HISTORY: Abdominal pain. COMPARISON: 06/04/2017 CT abdomen and pelvis. Procedure Note Austen Crocker MD - 06/29/2021 EXAMINATION: US ABDOMEN COMPLETE EXAM DATE/TIME: 06/29/2021 9:25 AM CLINICAL HISTORY: Abdominal pain. COMPARISON: 06/04/2017 CT abdomen and pelvis. IMPRESSION 1.Gallbladder maintains normal configuration without cholelithiasis or evidence of acute cholecystitis. No bile duct dilatation. 2.Visualized liver parenchyma has normal echotexture. Spleen is normal in size and echotexture. Doppler evaluation of the central portal vein demonstrates patency with normal directional flow. 3.Pancreas is partially obscured by overlying bowel gas though negative where seen. No ascites or peripancreatic fluid collection. Normal caliber abdominal aorta. 4.The kidneys demonstrate normal cortical echotexture bilaterally. No hydronephrosis. Right kidney measures 10.7 x 5.5 x 4.0 cm. Left kidney measures 12.5 x 5.2 x 4.5 cm. 5.If further evaluation is warranted for patient's abdominal pain, then HIDA scan and CT abdomen and pelvis could be obtained. Edited by Antonina Zuluaga on 06/29/2021 10:38 AM *Reading Radiologist: Nicolasa Crocker on 06/29/2021 at 11:02 AM Lanette Jimenez GREENHOUSE SPECIALIST-INSTITUTE SCIENTIST US ORDERABLES * CULTURE URINE (06/23/2021 3:39 PM CDT) Only the most recent of6 resultswithin the time period is included. Culture Urine Moderate growth normal skin/urogeni cori jimbo JAZMYNE 06/25/2021 5:00 AM CDT [facility] Urine URINE SPECIMEN OBTAINED BY CLEAN CATCH PROCEDURE / Unknown Collection / Unknown 06/23/2021 3:39 PM CDT 06/23/2021 3:39 PM CDT Lanette Jimenez GREENHOUSE SPECIALIST-INSTITUTE SCIENTIST LAB - MICROBIOLO GY ORDERABLES [facility] [address] * (ABNORMAL) URINALYSIS AUTO - POINT OF CARE (AMB) SMG (06/23/2021 3:10 PM CDT) Only the most recent of3 resultswithin the time period is included. Clarity UA POCT Cloudy [facility] Color UA POCT Shelly [facility] Glucose UA Negative Negative [facility] Bilirubin UA POCT Moderate(A) Negative [facility] Ketone UA Trace(A) Negative [facility] Specific [place] UA POCT >=1.030 1.002 - 1.030 [facility] Blood UA POCT Trace-Intact (A) Negative [facility] pH UA 6.0 5.0 - 8.0 pH units [facility] Protein UA POCT 100.(A) Negative [facility] Urobilinogen UA 1.0 0.1 - 1.0 [facility] Nitrite UA POCT Negative Negative [facility] Leukocyte UA Negative Negative [facility] QC Verified Yes Yes [facility] Urine URINE / Unknown 06/23/2021 3 :10 PM CDT Lanette Jimenez GREENHOUSE SPECIALIST-INSTITUTE SCIENTIST LAB - POINT OF C ARE ORDERABLES [facility] [address] [place] [address], [facility] [phone] * (ABNORMAL) SARS-COV-2 (COVID-19) ANTIBODY IGG (06/03/2021 9:32 AM CDT) CoV2 IGG Positive(A ) Negative 06/03/2021 5:11 PM CDT AM LABORATORY Blood BLOOD SPECIMEN / Unknown Venipuncture / Unknown 06/03/2021 9:32 AM CDT 06/03/2021 9:32 AM CDT Narrative [facility] - 06/03/2021 5:11 PM CDT This serologic based test was developed by [employer] and its performance characteristics determined by [facility] multisite validation and [facility]. ??This test has not been fully reviewed by the FDA but is being allowed for use per the FDA's Emergency Use Authorization. Please note the following disclaimers: Negative results do not rule out SARS-CoV-2 infection, particulary in those who have been in contact with the virus. ??Follow up testing with a molecular diagnostic should be considered to rule out infection in these individuals. ?? Results from antibody testing should not be used as the sole basis to diagnose or exclude SARS-CoV-2 infection or to inform infection status. False positive results may be due to past or present infection with [id number] coronavirus strains. Rigorous scientific studies have not been completed to determine if detectable IgG to SARS-CoV-2 confers protective immunity. Lanette Jimenez GREENHOUSE SPECIALIST-INSTITUTE SCIENTIST LAB - CHEMISTRY ORDERABLES [facility] [address] [place] [address], [facility] * COVID-19 VIRUS (CORONAVIRUS) (08/22/2020) Microbiology Historical Provider LAB - MICROBIOLOG Y ORDERABLES * LH (03/21/2019 9:58 AM CDT) LH 10.3 IU/L 03/22/2019 7:55 PM CDT [facility] ([facility]) Comment: INTERPRETIVE INFORMATION: Luteinizing Hormone Females: ?? Follicular: ?2.4-12.6 IU/L ?? Mid-Cycle: ? 14.0-95.6 IU/L ?? Luteal: ?1.0-11.4 IU/L ?? Postmenopausal: ??7.7-58.5 IU/L REFERENCE INTERVAL: Luteinizing Hormone Access complete set of age- and/or gender-specific reference intervals for this test in the [employer] [facility] Test Directory ([employer]). Performed by [employer], [address] [place] [address] [email or web address], Roverto Haji MD, Lab. Director Blood BLOOD SPECIMEN / Unknown Venipuncture / Unknown 03/21/2019 9:58 AM CDT 03/21/2019 9:58 AM CDT Tammy Scott GREENHOUSE SPECIALIST-INSTITUTE SCIENTIST LAB - CHEMISTR Y ORDERABLES Performing Organization Address [facility] [place] [facility] Co de Phone Number [employer] ([facility]) [address] [place] [address] * FSH (03/21/2019 9:58 AM CDT) [facility] Signature FSH 5.0 IU/L 03/22/2019 8:29 PM CDT [employer] ([facility]) Comment: INTERPRETIVE INFORMATION: Follicle Stimulating Hormone Females: ?? Follicular: ?3.5-12.5 IU/L ?? Mid-Cycle: ? 4.7-21.5 IU/L ?? Luteal: ?1.7-7.7 IU/L ?? Postmenopausal: ??25.8-134.8 IU/L REFERENCE INTERVAL: Follicle Stimulating Hormone Access complete set of age- and/or gender-specific reference intervals for this test in the [employer] [facility] Test Directory ([employer]). Performed by [employer], [address] [place] [address] [email or web address], Roverto Haji MD, Lab. Director Blood BLOOD SPECIMEN / Unknown Venipuncture / Unknown 03/21/2019 9:58 AM CDT 03/21/2019 9:58 AM CDT Tammy Scott GREENHOUSE SPECIALIST-INSTITUTE SCIENTIST LAB - CHEMISTR Y ORDERABLES Performing Organization Address City/[facility]/ZIP Co de Phone Number [employer] ([facility]) [address] * US GALLBLADDER (12/17/2017) Anatomical Region Laterality Modality Ultrasound Historical Provider US ORDERABLES * CT ABDOMEN W CONTRAST (12/17/2017) Anatomical Region Laterality Modality Abdomen Other Historical Provider CT ORDERABLES * CT ABDOMEN WWO PELVIS W CONT (06/04/2017 9:35 AM CDT) Anatomical Region Laterality Modality Abdomen, Pelvis Computed Tomogra phy 06/04/2017 10:0 7 AM CDT Impressions 06/04/2017 10:38 AM CDT Radiation dose reduction technique was utilized. COMPARISON: None. CONTRAST DOSE 100 mL Omnipaque-300 IV. Clear lung bases. Normal-appearing liver, spleen, pancreas, adrenal glands, gallbladder and both kidneys. Very tiny bilateral nephroliths without obstruction or hydronephrosis. Both kidneys are normally functioning. Nondilated ureters. No evidence of solid or cystic renal mass. Bladder is unremarkable. No focal intra-abdominal or pelvic mass. No evidence of small bowel obstruction. Constipation. Uterus is unremarkable. Right ovary measures 4 x 3.5 cm in size. Left ovary measures 2.5 x 2.5 cm in size. No free fluid. No evidence of lymphadenopathy. Appendix normal. Edited by Antonina Zuluaga on 06/04/2017 10:29 AM Narrative 06/04/2017 10:38 AM CDT PROCEDURE: CT ABDOMEN WWO PELVIS W CONT ?? 06/04/2017 10:07 AM HISTORY: ??Hematuria, unspecified. FINDINGS AND Procedure Note Taras Connelly MD - 06/04/2017 PROCEDURE: CT ABDOMEN WWO PELVIS W CONT 06/04/2017 10:07 AM HISTORY: Hematuria, unspecified. FINDINGS AND IMPRESSION Radiation dose reduction technique was utilized. COMPARISON: None. CONTRAST DOSE 100 mL Omnipaque-300 IV. Clear lung bases. Normal-appearing liver, spleen, pancreas, adrenal glands, gallbladder and both kidneys. Very tiny bilateral nephroliths without obstruction or hydronephrosis. Both kidneys are normally functioning. Nondilated ureters. No evidence of solid or cystic renal mass. Bladder is unremarkable. No focal intra-abdominal or pelvic mass. No evidence of small bowel obstruction. Constipation. Uterus is unremarkable. Right ovary measures 4 x 3.5 cm in size. Left ovary measures 2.5 x 2.5 cm in size. No free fluid. No evidence of lymphadenopathy. Appendix normal. Edited by Antonina Zuluaga on 06/04/2017 10:29 AM Taiwo Burrell MD CT ORDERABLES * (ABNORMAL) URINALYSIS MICROSCOPIC ONLY (05/23/2017 1:45 PM CDT) Only the most recent of3 resultswithin the time period is included. RBC UA 2-5(A) None, 0-2 # /hpf 05/23/2017 6:28 PM CDT [facility] WBC UA 0-2 None, 0-2, 2-5 # /hpf 05/23/2017 6:28 PM CDT [facility] Bacteria UA None Seen None Seen, Trace 05/23/2017 6:28 PM CDT [facility] Epithelial Cell UA 5-10 0-2, 2-5, 5-10 # /hpf 05/23/2017 6:28 PM CDT [facility] Mucus UA 1+ 05/23/2017 6:28 PM CDT [facility] Urine URINE SPECIMEN OBTAINED BY CLEAN CATCH PROCEDURE / Unknown Collection / Unknown 05/23/2017 1:45 PM CDT 05/23/2017 4:50 PM CDT Narrative [facility] - 05/23/2017 6:28 PM CDT Bacteria, epithelial cells, mucus, and crystals are reported as quantity/HPF. Marifer Bateman GREENHOUSE SPECIALIST-[facility] LAB - URINALYSIS ORDERABLES AM [facility]AT[facility] 1 [place], [place] [address] * SKIN TEST PPD - POINT OF CARE (02/12/2017) Only the most recent of2 resultswithin the time period is included. PPD negative Comment:0 mm negative MISCELLANEOUS SAMPLE S / Unknown 02/12/2017 Ju Meyer GREENHOUSE SPECIALIST-INSTITUTE SCIENTIST LAB - POINT OF CAR E ORDERABLES * RH IMMUNE GLOBULIN WORKUP PANEL (ONLY on RH negative mothers) (09/13/2015 5:16 PM TIRE BUSTER) # Rhlg vials needed Patient not a candidate. Patient is Rh Positive. 09/13/2015 5:20 PM TIRE BUSTER [facility] Miscellaneous samples (specimen) BLOOD SPECIMEN / Unknown 09/13/2015 5:16 PM TIRE BUSTER 09/13/2015 5:16 PM TIRE BUSTER Gideon Rodriguez MD LAB - BLOOD BANK ORD ERABLES [facility] [address] [place], [place] [address] * NEURAXIAL BLOCK (09/13/2015 2:17 PM TIRE BUSTER) Narrative Emiliano Mei MD - 09/13/2015 2:17 PM TIRE BUSTER Emiliano Mei MD ? 09/13/2015 ??2:17 PM NEURAXIAL BLOCK Patient Location: ??OB Pre Procedure Indication: ??at patient's request and labor analgesia Anticoagulation /Antithrombosis Status Confirmed: Yes Preanesthetic Checklist: ??patient identified, IV checked, site marked, risks and benefits discussed, surgical consent verified, monitors and equipment checked, pre-op evaluation done, timeout performed, informed consent obtained and questions answered / anesthesia plan accepted Monitors: ??BP and Pulse Ox Patient Condition: ??awake Patient Position: ??sitting Procedure Block Performed: ??epidural Prep: ??Betadine Sterile Field: ??sterile gloves, sterile field established, cap/hat and mask Approach: ??midline Skin Numbed with: ??lidocaine 1% Epidural Needle Type: ??Tuohy Needle Gauge: 17 Needle Length: ??9 cm Placement Site: ??L3-L4 Number of Attempts: ??1 Loss of ResistanceTechnique: ??saline Catheter Length at Skin: ??13 cm CSF Aspirated from Catheter: ??negative Blood Aspirated from Catheter: ??negative Test Dose: ??lidocaine 1.5% with 1 200 k epinephrine 3 ml ??at 09/13/2015 2:04 PM Local Anesthetic: ??bupivacaine 0.125% 10 ml Events CSF return negative injection not painful no paresthesia no other event Degree of Difficulty: ??none Position Post Procedure: ??supine Vital signs monitored and stable throughout. ??See Anesthesia Intraop record for details. Block End Time: ??09/13/2015 2:17 PM Block Performed by: ??Sigifredo HANKINS Emiliano Mei MD GENERAL ANESTHE JOSE ORDERABLES * RPR (09/13/2015 12:40 AM TIRE BUSTER) RPR Nonreactive Nonreactive 09/13/2015 1:33 PM TIRE BUSTER [facility] Blood BLOOD SPECIMEN / Unknown Lab Venipuncture / Unknown 09/13/2015 12:40 AM TIRE BUSTER 09/13/2015 12:44 AM TIRE BUSTER Gideon Rodriguez MD LAB - CHEMISTRY ORDLinnea GROSS Performing Organization Address [facility] Co de Phone Number [facility] [address] * TYPE + SCREEN PANEL (09/13/2015 12:40 AM TIRE BUSTER) ABO A 09/13/2015 1:52 AM TIRE BUSTER [facility] Rh Type Positive 09/13/2015 1:52 AM TIRE BUSTER [facility] Antibody Screen Negative 09/13/2015 1:52 AM TIRE BUSTER [facility] Miscellaneous samples (specimen) BLOOD SPECIMEN / Unknown Lab Venipuncture / Unknown 09/13/2015 12:40 AM TIRE BUSTER 09/13/2015 12:44 AM TIRE BUSTER Gideon Rodriguez MD LAB - BLOOD BANK ORD JAMAL [facility] [address] [place], [place] [address] * (ABNORMAL) URINALYSIS ROUTINE AUTO (09/13/2015 12:20 AM TIRE BUSTER) Only the most recent of2 resultswithin the time period is included. Color UA Yellow 09/13/2015 2:42 AM TIRE BUSTER [facility] Clarity UA Cloudy 09/13/2015 2:42 AM TIRE BUSTER [facility] Specific [place] UA >=1.030 1.005 - 1.030 09/13/2015 2:42 AM TIRE BUSTER [facility] pH UA 5.5 5.0 - 8.0 pH 09/13/2015 2:42 AM TIRE BUSTER [facility] Protein UA Negative Negative 09/13/2015 2:42 AM TIRE BUSTER [facility] Blood UA Negative Negative 09/13/2015 2:42 AM TIRE BUSTER [facility] Leukocyte UA Trace(A) Negative 09/13/2015 2:42 AM TIRE BUSTER [facility] Nitrite UA Negative Negative 09/13/2015 2:42 AM TIRE BUSTER [facility] Glucose UA Negative Negative 09/13/2015 2:42 AM TIRE BUSTER [facility] Ketone UA Negative Negative 09/13/2015 2:42 AM TIRE BUSTER [facility] Bilirubin UA Negative Negative 09/13/2015 2:42 AM TIRE BUSTER [facility] Urobilinogen UA 0.2 0.2 - 1.0 EU/dL 09/13/2015 2:42 AM TIRE BUSTER [facility] Urine Microscopy Urine microscopy to follow 09/13/2015 2:42 AM TIRE BUSTER [facility] Urine URINE SPECIMEN OBTAINED BY CLEAN CATCH PROCEDURE / Unknown Collection / Unknown 09/13/2015 12:20 AM TIRE BUSTER 09/13/2015 2:30 AM TIRE BUSTER Gideon Rodriguez MD LAB - URINALYSIS ORD ERABLES [facility] [address] * (ABNORMAL) URINALYSIS MICROSCOPIC ONLY W/REFLEX CULTURE (09/09/2015 8:15 PM TIRE BUSTER) Only the most recent of5 resultswithin the time period is included. RBC UA 0-2 None , 0-2 # /hpf 09/09/2015 8:40 PM TIRE BUSTER [facility] WBC UA 2-5 None , 0-2, 2-5 # /hpf 09/09/2015 8:40 PM TIRE BUSTER [facility] Bacteria UA 1+(A) None Seen, Trace 09/09/2015 8:40 PM TIRE BUSTER [facility] Epithelial Cell UA 2-5 0-2, 2-5, 5-10 # /hpf 09/09/2015 8:40 PM TIRE BUSTER [facility] Amorphous Phosphate Crystals 2+(A) None Seen 09/09/2015 8:40 PM TIRE BUSTER [facility] Reflex Status Culture to follow 09/09/2015 8:40 PM [facility] Urine URINE SPECIMEN OBTAINED BY CLEAN CATCH PROCEDURE / Unknown Collection / Unknown 09/09/2015 8:15 PM TIRE BUSTER 09/09/2015 8:24 PM TIRE BUSTER Narrative [facility] - 09/09/2015 8:40 PM TIRE BUSTER Bacteria, epithelial cells, mucus, and crystals are reported as quantity/HPF. Gideon Rodriguez MD LAB - URINALYSIS ORD ERABLES [facility] [address] [place], [place] [address] * (ABNORMAL) URINALYSIS ROUTINE W/REFLEX TO CULTURE (09/09/2015 8:15 PM TIRE BUSTER) Only the most recent of6 resultswithin the time period is included. Color UA Yellow 09/09/2015 8:30 PM [facility] Clarity UA Slt Cloudy 09/09/2015 8:30 PM [facility] Glucose UA Negative Negative 09/09/2015 8:30 PM [facility] Bilirubin UA Negative Negative 09/09/2015 8:30 PM [facility] Ketone UA Negative Negative 09/09/2015 8:30 PM [facility] Specific [place] UA 1.010 1.005 - 1.030 09/09/2015 8:30 PM [facility] pH UA 8.0 5.0 - 8.0 pH 09/09/2015 8:30 PM [facility] Protein UA Negative Negative 09/09/2015 8:30 PM [facility] Urobilinogen UA 0.2 0.2 - 1.0 EU/dL 09/09/2015 8:30 PM [facility] Nitrite UA Negative Negative 09/09/2015 8:30 PM [facility] Blood UA Negative Negative 09/09/2015 8:30 PM [facility] Leukocyte UA 2+(A) Negative 09/09/2015 8:30 PM [facility] Urine Microscopy Urine microscopy to follow 09/09/2015 8:30 PM [facility] Urine URINE SPECIMEN OBTAINED BY CLEAN CATCH PROCEDURE / Unknown Collection / Unknown 09/09/2015 8:15 PM TIRE BUSTER 09/09/2015 8:24 PM TIRE BUSTER Gideon Rodriguez MD LAB - URINALYSIS ORD ERABLES Performing Organization Address City/[facility]/ZIP Co de Phone Number [facility] [address] * AMNISURE - POCT (IP) REGULO (08/27/2015 9:47 AM TIRE BUSTER) Only the most recent of3 resultswithin the time period is included. Amnisure POCT Not detected Not detected [facility] Lot # [id number] [facility] Expiration Date [facility] QC Verified Yes Yes [facility] POC T TESTING Fluid specimen (specimen) BODY FLUID SPECIMEN / Unknown 08/27/2015 9:47 AM TIRE BUSTER Stevan Emery MD LAB - POINT OF CARE ORDERABLES Performing Organization Address [facility] Co de Phone Number [facility] [address] * US OB BPP W/O NST [id number] (08/15/2015 7:08 PM TIRE BUSTER) Anatomical Region Laterality Modality Abdomen Ultrasound 08/15/2015 7:21 PM TIRE BUSTER Narrative 08/15/2015 9:28 PM TIRE BUSTER OBSTETRICAL BIOPHYSICAL PROFILE: (08/15/2015) CLINICAL HISTORY: Premature rupture of membranes. CONCLUSION: 1. Biophysical profile is 8/8. 2. There is a single intrauterine gestation in vertex presentation with positive movements and positive cardiac activity of 128 bpm. 3. Amniotic fluid volume is 14.4 cm. 50th percentile is 4 cm. 4. Placental position is posterior and fundal. Procedure Note Ahmet Hummel MD - 08/15/2015 OBSTETRICAL BIOPHYSICAL PROFILE: (08/15/2015) CLINICAL HISTORY: Premature rupture of membranes. CONCLUSION: 1. Biophysical profile is 8/8. 2. There is a single intrauterine gestation in vertex presentation with positive movements and positive cardiac activity of 128 bpm. 3. Amniotic fluid volume is 14.4 cm. 50th percentile is 4 cm. 4. Placental position is posterior and fundal. Stevan Emery MD US ORDERABLES * NITRAZINE PH - POINT OF CARE (IP) - ILL (08/15/2015 5:40 PM TIRE BUSTER) [facility] Nitrazine pH POCT 5.0 5 - 6.4 AM POCT TESTING Lot # [id number] [facility] POCT TESTING QC Verified Yes Yes [facility] POC T TESTING Fluid specimen (specimen) BODY FLUID SPECIMEN / Unknown 08/15/2015 5:40 PM TIRE BUSTER Stevan Emery MD LAB - POINT OF CARE ORDERABLES [facility] POCT TESTING [address] * AMYLASE BLOOD (02/11/2015 4:49 AM CDT) [facility] Amylase 32 25 - 125 U/L 02/11/2015 5:44 AM CDT [facility] Blood BLOOD SPECIMEN / Unknown Lab Venipuncture / Unknown 02/11/2015 4:49 AM CDT 02/11/2015 4:58 AM CDT Gideon Rodriguez MD LAB - CHEMISTRY BECKY GROSS Performing Organization Address City/[facility]/ZIP Co de Phone Number [facility] [address] * HCG BLOOD QUALITATIVE (11/30/2014 2:19 PM CDT) [facility] HCG Qual Serum Negative Negative 11/30/2014 2:42 PM CDT [facility] Blood BLOOD SPECIMEN / Unknown Venipuncture / Unknown 11/30/2014 2:19 PM CDT 11/30/2014 2:23 PM CDT Gideon Rodriguez MD LAB - CHEMISTRY BECKY GROSS Performing Organization Address City/[facility]/ZIP Co de Phone Number [facility] [address] * GROSS + MICRO EXAM (ILL) (12/18/2013 12:28 PM CDT) Case Report Surgical Pathology Report ? Case: [id number] ? --- Authorizing Provider: ??Frederic Licea MD ? Ordering Provider: ?? Frederic Licea MD ? Pathologist: ? Heriberto Chavira MD ?Collected: ? 12/18/2013 12:28 PM ?Received: ?12/19/2013 ??8:45 AM ?Signed Out: ?12/22/2013 ??4:11 PM (Final) ? Specimen: ?Breast Mass ? 12/22/2013 4:11 PM CDT [facility] Final Diagnosis LEFT BREAST MASS: - FIBROADENOMA. COMMENT: Case was discussed in intradepartmental conference with concurrence. MICHAEL/aranza 12/22/2013 4:11 PM CDT [facility] Clinical History Collection Date: 12/18/13 Preoperative Clinical Diagnosis: Left breast mass. Operative Procedure: Excision left breast mass. Specimen Submitted: Left breast mass. Physician: Dr. Licea 12/22/2013 4:11 PM CDT [facility] Gross Description Received in formalin labeled Yaneth Solorio and left breast mass , is an unoriented, lobulated fragment of rubbery pink-ospina soft tissue with small amount of adherent adipose tissue. The specimen measures 3.6 x 2.9 x 2.4 cm. The external surface of the specimen is black inked and serially sectioned revealing a smooth pink lobulated cut surface without hemorrhage, necrosis or fibrosis. 60% of the tissue (every other level) is submitted for histologic evaluation as A1-A5. OJ/aranza 12/22/2013 4:11 PM CDT [facility] Microscopic Description Microscopic examination is performed and substantiates the above diagnosis. 12/22/2013 4:11 PM CDT [facility] Testing Performed By Performed by [facility] - Pathology at [facility], [place]. [address] 12/22/2013 4:11 PM CDT [facility] Synoptic Report 12/22/2013 4:11 PM CDT [facility] Pathology/Cytolo gy SPECIMEN FROM BREAST OBTAINED BY INCISIONAL BIOPSY OF BREAST MASS / Unknown 12/18/2013 12:28 PM CDT 12/19/2013 8:45 AM CDT Frederic Licea MD LAB - PATHOLOGY/CYTO LOGY ORDERABLES [facility] Delfina Gonzales [place], [place] [address] * US BREAST UNILATERAL LEFT (11/13/2013 9:25 AM CDT) Anatomical Region Laterality Modality Breast Left Ultrasound 11/13/2013 9:34 AM CDT Impressions 11/13/2013 10:15 AM CDT Palpable mass left breast corresponds to a 4.6 x 1.9 x 3.2 cm solid mass. Consider surgical consultation with excision. Narrative 11/13/2013 10:15 AM CDT LEFT BREAST ULTRASOUND 11/13/2013 HISTORY: Patient reports palpable lump in the breast since July 2013. Reportedly 2 cm nonmobile mass at the 9 o'clock position left breast. COMPARISON: None. DISCUSSION: Ultrasound performed of the left breast at the region of palpable abnormality in this 23-year-old. At the 8 o'clock position and 6 cm from the nipple corresponding to the palpable abnormality is a 4.6 x 1.9 x 3.2 cm solid mass with mild internal vascularity on color Doppler imaging. Procedure Note Madhav Ramirez MD - 11/13/2013 LEFT BREAST ULTRASOUND 11/13/2013 HISTORY: Patient reports palpable lump in the breast since July 2013. Reportedly 2 cm nonmobile mass at the 9 o'clock position left breast. COMPARISON: None. DISCUSSION: Ultrasound performed of the left breast at the region of palpable abnormality in this 23-year-old. At the 8 o'clock position and 6 cm from the nipple corresponding to the palpable abnormality is a 4.6 x 1.9 x 3.2 cm solid mass with mild internal vascularity on color Doppler imaging. IMPRESSION Palpable mass left breast corresponds to a 4.6 x 1.9 x 3.2 cm solid mass. Consider surgical consultation with excision. Johana Dunn APRN-HEATH US ORDERABLES Care Teams Litigation Partner Relationship Specialty Start Date End Date Lanette Jimenez, GREENHOUSE SPECIALIST-INSTITUTE SCIENTIST [address] [place] [address] PCP - General Nurse Practitioner 12/26/21
--- OUTSIDE RECORDS SUMMARY | 2024-09-25 21:12 | XMS_ITS | Clinical Summary ---
Author Organization [facility] Address [address] [place] [address] Care Team Providers Care Elementary Esl Teacher Name Role Phone Lanette Jimenez ELECTRICAL MACHINE BUILDER-RELOCATION SERVICES SPECIALIST Primary Care Provider + Source Comments [facility],non-owned Affiliates and Associated Physician Practices is amultiple site organization consisting of ambulatory clinics and [place]in [place] and [place]. This disclosure is being madepursuant to the Care Everywhere program and may not contain all information available regarding this patient. Last updated 18.[employer] Allergies Active Allergy Reactions Criticality Noted Date [...] Problem Noted Date Diagnosed Date COVID-19 09/02/2020 Encounters Date Type Department Care Team Description 09/04/2024 Refill [facility] - Family [facility] [place] [address] Lanette Jimenez ELECTRICAL MACHINE BUILDER-RELOCATION SERVICES SPECIALIST MEDICATION REFILL 08/16/[address] [phone] Lanette Jimenez ELECTRICAL MACHINE BUILDER-RELOCATION SERVICES SPECIALIST Refill Request 07/28/2024 3:00 PM FINGERNAIL SCULPTOR Office Visit [address] [phone] Lanette Jimenez ELECTRICAL MACHINE BUILDER-RELOCATION SERVICES SPECIALIST Bronchitis (Primary Dx) 07/22/2024 1:40 PM FINGERNAIL SCULPTOR Office Visit [address] [phone] Lanette Jimenez, ELECTRICAL MACHINE BUILDER-RELOCATION SERVICES SPECIALIST Acute non-recurrent pansinusitis (Primary Dx); Class 2 obesity due to excess calories without serious comorbidity with body mass index (BMI) of 37.0 to 37.9 in adult; Yeast infection from Last 3 Months Immunizations Name Administration Dates Next Due DTP 09/06/2001, 1,10/08/2000,1999 HEP B VACCINE ADOL/ADULT 2 DOSE 06/17/2001,10/08,08/06/2000 HIB-PRP-OMP 3 DOSE 06/17/2001,10/08/2000, 000 INFLUENZA VACCINE, QUADR. (F LUZONE; FLULAVAL; FLUARIX; AFLURIA QUADRIVALENT; 6MO+), 0.5 ML (IIV4) 09/13/2015 MENINGOCOCAL MENINGITIS 05/08/2014 MMR 09/06/2001 PNEUMOCOCCAL PCV7 CONJ, PEDS 06/17/2001, 12/14/2000,10/08/2000,1999 POLIO IPV 12/14/2000,10/08/2000,08/06/2000 TDAP (7yrs+) 09/14/2015 VARICELLA 05/08/2014,06/17/2001 Family History Medical History Relation Name Comments Heart Disease Maternal Grandfather Kidney Disease Maternal Grandfather Thyroid Disease Maternal Grandmother Polycystic Ovary Syndrome Mother Thyroid Disease Mother Heart Disease Paternal Grandfather Relation Name Status Comments Father Alive Maternal Grandfather Alive Maternal Grandmother Alive Mother Alive Paternal Grandfather Alive Social History Tobacco Use Types Packs/Day Years [...] Comments Blood Pressure 127/88 07/28/2024 3:09 PM FINGERNAIL SCULPTOR Pulse 114 07/28/2024 3:09 PM FINGERNAIL SCULPTOR Temperature 36.7 ??C (98.1 ??F) 04/24/2024 10:59 AM C DT Respiratory Rate 18 06/12/2022 3:21 PM CDT Oxygen Saturation 97% 07/28/2024 3:09 PM FINGERNAIL SCULPTOR Inhaled Oxygen Concentration - - Weight 83.5 kg (184 lb) 07/28/2024 3:09 PM FINGERNAIL SCULPTOR Height 160 cm (5' 3 ) 07/28/2024 3:09 PM FINGERNAIL SCULPTOR Body Mass Index 32.59 07/28/2024 3:09 PM FINGERNAIL SCULPTOR Plan of Treatment Health Maintenance Due Date Last Done Comments PAP SMEAR 03/27/2022 03/27/2019 (Done Outside Per Patient), 10/26/2015 (Previously completed) COVID-19 VACCINE ( season) 2024 INFLUENZA VACCINE (#1) 2024 09/13/2015 DEPRESSION SCREENING 08/27/2024 08/30/2023, 09/12/2022, 12/08/2021 DTAP/TDAP/TD VACCINES (5 - Td or Tdap) 09/14/2025 09/14/2015, 09/06/2001, 12/14/2000, Additional history exists ZOSTER VACCINE (1 of 2) 2042 HEPATITIS B VACCINE Completed 06/17/2001, 10/08/2000, 08/06/2000 HIB VACCINE Aged Out 06/17/2001, 09/27, 08/06/2000 No longer eligible based on patient's age to complete this topic PNEUMOCOCCAL VACCINE Aged Out 06/17/2001, 12/14/2000, 10/08/2000, Additional history exists No longer eligible based on patient's age to complete this topic MENINGOCOCCAL VACCINE Aged Out 05/08/2014 No darrick librado eligible based on patient's age to complete this topic HEPATITIS C SCREENING Discontinued HIV SCREENING Discontinued HPV VACCINE Aged Out No longer eligi ble based on patient's age to complete this topic MENINGOCOCCAL (Group B) VACCINE Aged Out No longer eligible based on patient's age to complete this topic Advance Directives * Full Code (Latest Code [...] 5:27 AM 08/07/2015 9:21 AM Care Teams Elementary Esl Teacher Relationship Specialty Start Date End Date Lanette Jimenez, ELECTRICAL MACHINE BUILDER-RELOCATION SERVICES SPECIALIST [address] [place] [address] PCP - General Nurse Practitioner 12/26/21
--- OUTSIDE RECORDS SUMMARY | 2024-09-25 21:12 | XMS_ITS | Patient Health Record ---
Author Organization [facility] Address [address] [place] [phone] Care Team Providers Care Textile Machine Mechanic Name Role Phone Sarina Irwin Unavailable [phone] Reason For Referral No Information Plan Of Treatment No Information
== END 2024-09-25 21:35 | disposition home or self-care (01) ==
LOC: ANHED 21:10
PROVIDERS: Emergency Provider Physician Assistant
DX: S62.614A Displaced fracture of proximal phalanx of right ring finger, initial encounter for closed fracture (principal); W22.8XXA Striking against or struck by other objects, initial encounter
CPT/HCPCS: 29130; 73130; 99284